=== PATIENT | female | born 1930 | race African-American/Black ===

== ENCOUNTER 2021-03-15 10:30 | Observation (INO) ==
[2021-03-15] MEDS ORDERED: Isovue-370 500 ML BOTTLE IVP ONE (10:41)
[2021-03-15 11:05] LABS: Hematocrit 39.3 % (35.3-44.9); Hemoglobin 12.2 g/dL (11.5-15.4); Mean Corpuscular Hemoglobin 26.4 pg (28.0-33.3); Mean Corpuscular Volume 85.1 fL (83.0-100.0); Mean Platelet Volume 9.5 fL (9.4-12.4); Platelet Count 276 K/mcL (140-400); Red Blood Count 4.62 M/mcL (3.82-4.97); Red Cell Distribution Width 15.1 % (11.5-14.5); White Blood Count 9.9 K/mcL (4.3-11.1)
[2021-03-15 11:07] LABS: INR 1.1; Prothrombin Time 13.1 Seconds (9.4-12.1)
[2021-03-15 11:10] LABS: Activated Partial Thrombo Time 33.2 Seconds (26.0-36.0)
[2021-03-15 11:15] LABS: BUN/Creatinine Ratio 19 (6-26); Blood Urea Nitrogen 21 mg/dL (8-23); Calcium 9.4 mg/dL (8.6-10.3); Carbon Dioxide 24 mEq/L (23-29); Chloride 111 mEq/L (98-107); Glucose 110 mg/dL (70-105); Osmolality,Calculated 296 (280-300); Sodium 141 mEq/L (136-145); eGFR For African Americans 56 (> 60); eGFR For Non-African Americans 46 (> 60)
[2021-03-15 11:16] LABS: Troponin I < 0.03 ng/mL (< 0.04)
[2021-03-15] MEDS ORDERED: Aspirin 81 MG TAB.CHEW PO STA (11:36)
[2021-03-15] MEDS ORDERED: Acetaminophen 325 MG TABLET PO PRN (11:50)
[2021-03-15] MEDS ORDERED: Ondansetron ODT 4 MG TAB.RAPDIS SL PRN (11:50)
[2021-03-15 13:03] LABS: Bilirubin,Urine Negative (Negative); Blood,Urine Negative (Negative); Clarity,Urine Clear (Clear); Color,Urine Colorless (Yellow); Glucose,Urine (UA) Normal (Normal); Ketones,Urine Negative (Negative); Leukocyte Esterase,Urine Negative (Negative); Nitrite,Urine Negative (Negative); Protein,Urine Trace mg/dL (Neg-Trace); Specific Gravity,Urine > 1.030 (1.010-1.025); Urobilinogen,Urine Normal (Normal)
[2021-03-16] MEDS: *HR* Enoxaparin 30 MG/0.3 ML SYRINGE SQ SCH (05:41)
[2021-03-16] MEDS ORDERED: *HR* Enoxaparin 40 MG/0.4 ML SYRINGE SQ SCH (06:00)
[2021-03-16 07:08] LABS: INR 1.2; Prothrombin Time 13.5 Seconds (9.4-12.1)
[2021-03-16 07:29] LABS: Chol/HDL Ratio 3.5 (0-4.9); Cholesterol 135 mg/dL (< 200); HDL Cholesterol 39 mg/dL (40-59); LDL Cholesterol,Calculated 81 mg/dL (< 100); Triglycerides 76 mg/dL (< 150); Troponin I < 0.03 ng/mL (< 0.04)
[2021-03-16] MEDS ORDERED: Aspirin 325 MG TABLET PO SCH (09:00)
[2021-03-16] MEDS ORDERED: Aspirin 81 MG TAB.CHEW PO SCH (09:00)
[2021-03-16] MEDS ORDERED: Perflutren Lipid Microsphere 1.3 ML in 0.9 % Sodium Chloride 8.7 ML IVP PRN (11:21)
[2021-03-16 12:34] LABS: Estimated Average Glucose 140 mg/dl; Hemoglobin A1C 6.5 %
[2021-03-17] MEDS: *HR* Enoxaparin 30 MG/0.3 ML SYRINGE SQ SCH (05:48)
[2021-03-17] MEDS ORDERED: lisinopriL 20 MG TABLET PO SCH (09:00)
[2021-03-17] MEDS ORDERED: amLODIPine 5 MG TABLET PO SCH (09:00)
[2021-03-17 14:08] VITALS: BP 160/68
== END 2021-03-17 16:56 | disposition home or self-care (01) ==
LOC: EMEROOARM 10:30 → 3BNU 10:30 → SUATTDRO 11:48 → 3BNU 12:29
PROVIDERS: ADMIT Internal Medicine; ATTEND Registered Nurse